=== PATIENT | male | born 1975 | race Two or more races ===

== ENCOUNTER 2019-10-12 09:40 | Outpatient (CLI) | payer OTHER ==
--- NOTE | 2019-10-12 10:18 | SLEEP CARE CONSULTATION ---
Information from patient questionnaire entered by Jeaneth Alves. I have reviewed and concur with the information entered by Jeaneth Alves. This document represents the service I personally performed and the decisions made by me, David Linda MD, [facility]. History of Present Illness Service Date and Time: 10/12/2019 0940 Reason for Visit: New patient Chief Complaint: reports: Unrefreshed sleep, Excessive daytime sleepiness, Fatigue Duration of Symptoms: 10 YEARS Usual bedtime: 2200 Time it takes to fall asleep: 5 minutes Snores at night: Yes Observed to quit breathing while asleep: Yes Sleeps alone due to snoring: Yes Number of times waking at night: 2 Reasons for waking at night: reports: Snoring, Gasping for air, Pain Toss, Turn, or Twitch while sleeping: Yes Recalls having dreams: No Usually gets out of bed at: 0530 Feels refreshed in the morning: No Morning headache: No Sleepy or fatigued during the day: Yes Ever fallen asleep while driving: Yes Takes day naps: No Dreams during day naps: Yes Prior sleep studies: No Additional HPI information: The patient is here because his snore has gotten too loud for his . She also has seen him quit breathing. He recalls waking up choking. He feels tired and sleepy during the day. His [place] Sleepiness Scale score is 14. Subjective Initial [place] Sleepiness Scale score: 14 Past Medical History Past Medical History: reports: Other (blood pressure) Social History The patient's occupation is an [employer]. Patient is and lives in [place]. Have you smoked in the past 12 months: Yes Cigarettes per day (20/pack): 10 Years of smokin Quit date: 05/2019 Smoking Pack Years: 5.0 Alcohol use: Yes Alcohol amount and frequency: 3-4 every other weekend Caffeine use: Yes Caffeine amount and frequency: 2 cups Allergies and Home Medications Drug allergies reviewed: Yes (NKDA) Home medication list reviewed: Yes (lisinopril and Claritin) Review of Systems Weight gain over past 5 years: 10 Weight loss over past 5 years: 10 Cardiovascular: reports: high blood pressure Respiratory: reports: shortness of breath Gastrointestinal: denies: heartburn, difficulty swallowing, nausea, vomitting, diarrhea, abdominal pain, other Urinary: denies: incontinence, frequency, urgency, impotence, other Neurological: denies: headaches, seizure, head trauma, disorientation, speech dysfunction, gait or balance problems, fainting or unconsciousness, other Psychiatric: denies: Attention Deficit Hyperactivity, anxiety, depression, mood disorder, claustrophobia, other Ear/Nose/Throat: reports: nasal congestion, sinus problems, wisdom teeth removed Musculoskeletal: reports: joint pain, back pain Immunologic: reports: sneezing, itching Physical Exam Vital signs obtained and entered by: Exam is deferred to comply with the COVID- 19 precautions. Height: 6 ft Weight: 207 lb Body Mass Index: 28.0 BMI Classification: Overweight Impression and Plan Visit Type: In Office Provider Statement: I spent 100% of the Face to Face Visit with the patient with greater than 50% spent counseling the patient and coordination of care.
== END 2019-10-12 09:41 | disposition home or self-care (01) ==
LOC: SC 09:40
PROVIDERS: ATTEND Internal Medicine Pulmonary Disease
DX: R06.83 Snoring (principal); R06.81 Apnea, not elsewhere classified; G47.10 Hypersomnia, unspecified; G47.8 Other sleep disorders; R53.83 Other fatigue; I10 Essential (primary) hypertension; E66.3 Overweight; Z68.28 Body mass index [BMI] 28.0-28.9, adult
CPT/HCPCS: 99203; 99212

== ENCOUNTER 2019-12-27 19:30 | Outpatient (CLI) | payer OTHER | END 2019-12-27 23:59 | disposition home or self-care (01) | LOC: SC 19:30 | PROVIDERS: ATTEND Nurse Practitioner Family | DX: G47.33 Obstructive sleep apnea (adult) (pediatric) (principal) | CPT/HCPCS: 95806 ==

== ENCOUNTER 2020-01-12 15:37 | Outpatient (CLI) | payer OTHER ==
--- NOTE | 2020-01-12 16:03 | SLEEP CARE CONSULTATION ---
Information from patient questionnaire entered by Suraj Rojas. I have reviewed and concur with the information entered by Suraj Rojas. This document represents the service I personally performed and the decisions made by me, Licha Calles ARNP. History of Present Illness Service Date and Time: 01/12/20201536 Initial [place] Sleepiness Scale score: 14 (in 2020) Current [place] Sleepiness Scale score: 10 Additional HPI information: MARIA ELENA AVILA returns for follow up and results of the recently performed home sleep study. I explained the pathophysiology behind obstructive sleep apnea. We then spent quite a bit of time discussing different treatment options. For mild obstructive sleep apnea, surgery and oral appliance are alternatives to nasal CPAP therapy but in moderate or severe cases, nasal CPAP is the most effective and reliable treatment. Because apnea is primarily in supine position, then positional management therapy could be effective. Methods discussed such as positioning with pillows, using a T-shirt with tennis balls in the back, and shown commercial products that have a pillow format on back to prevent supine sleep. I reviewed the impact of weight changes on sleep apnea and strongly recommended losing weight. After some discussion, the patient opted to go with the nasal CPAP therapy. Nasal autoCPAP set at 4-15 cmH20 will be ordered with rationale explained. A manual titration study will be ordered if unable to find optimal pressure with office adjustments. I explained how CPAP machine works with sample devices Respironics Dreamstation and ResVoddler [id number] and what to expect when using the machine. Using CPAP every night in order to get used to it was emphasized. Patient advised to put CPAP mask on before getting into bed so as not to fall asleep without CPAP. To assist acclimation to CPAP use, it could also be used for a short time during day while reading or watching TV. The patient was instructed to call the CPAP supplier to discuss any mechanical problem that may occur. If the mask given is uncomfortable or is difficult to keep on through the night even with adjustment, contact the CPAP supplier as many will replace with another mask style if notified before 30 days. If snoring or perceives is not getting enough air or too much air from the machine, notify this office. [facility] patient education PAP tips reviewed and given to patient. Patient counseled not drink alcohol less than 4 hours before bedtime as it can increase snoring and apnea. Patient was cautioned about risks of drowsy driving until sleepiness symptoms resolve. Sleep Study - Results Type of Sleep Study: Home sleep study Prior sleep studies: No Polysomnography/Home Sleep Study results: Based on 4% Calculation: The AHI4% calculation of 5.0 per hour of recording time was based on a total of 3 scored apneas and 14 scored hypopneas with 4% desaturations. Supine AHI4%: 14.2 per hour. Non-supine AHI4%: 1.6 per hour. Oxygen Summary: Patient's baseline O2 saturation was 92.0 %. The patient spent 2.9 minutes at an oxygen saturation less than 90%, and 0.3 minutes less than 85%. The desaturation index was 5.9 events per hour sleep time. The lowest saturation was 71.0 %. SNORING: The percent of the study time spent snoring was 0.0 %. The Snoring Co unt was 0 . The Snoring Index was 0.0 . PULSE RATE REVIEW: The mean heart rate was 62 beats per minute. The rate ranged from a low of 41 to a high of 76 beats per minute. DIAGNOSIS CODE: Obstructive Sleep Apnea G47.33 This patient has mild obstructive sleep apnea, occurring almost exclusively during supine sleep. Allergies and Home Medications Drug allergies reviewed: Yes (NKDA) Home medication list reviewed: Yes (no changes) Review of Systems Review of systems same as previous: Yes (no changes) Physical Exam Heart Rate: 78 O2 Saturation: 98 Height: 6 ft Weight: 198 lb Body Mass Index: 26.8 BMI Classification: Overweight Impression and Plan 1. Obstructive Sleep Apnea-Hypopnea Syndrome, mild, with lowest oxygen saturation of 71.0%. Obviously this is the cause of the patients symptoms of unrefreshed sleep, and excessive daytime sleepiness. Positive pressure therapy could benefit his high blood pressure. As mentioned above, the patient will be started on nasal autoCPAP therapy with pressure set at 4-15 cmH2O. Compliance guidelines also reviewed. A copy of compliance guidelines will be given for reference at check out. Because the apnea is more severe supine, I instructed to avoid sleeping supine using pillow positioning or Tshirt with sewn-in tennis balls until able to start CPAP use. * Nasal auto CPAP therapy, pressure at 4-15 cm H2O. * Attempt to lose weight. * Avoid alcohol consumption near bedtime. * Avoid supine sleep until using CPAP. * The patient is again cautioned about driving until sleepiness completely resolves. * Return one month after CPAP obtained. I will assess response to therapy and compliance at that time. Counseling Topics: Weight loss health impact Visit Type: In Office Time Spent with Patient (minutes): 18 Provider Statement: I spent 100% of the Face to Face Visit with the patient with greater than 50% spent counseling the patient and coordination of care.
== END 2020-01-12 15:38 | disposition home or self-care (01) ==
LOC: SC 15:37
PROVIDERS: ATTEND Nurse Practitioner Family
DX: G47.33 Obstructive sleep apnea (adult) (pediatric) (principal); E66.3 Overweight; Z68.26 Body mass index [BMI] 26.0-26.9, adult
CPT/HCPCS: 99212; 99213

== ENCOUNTER 2020-09-26 09:45 | Outpatient (CLI) | payer OTHER ==
--- NOTE | 2020-09-26 10:22 | SLEEP CARE CONSULTATION ---
Information from patient questionnaire entered by Kristine Rashid. I have reviewed and concur with the information entered by Kristine Rashid. This document represents the service I personally performed and the decisions made by , Licha Calles ARNP. History of Present Illness Service Date and Time: 09/26/2020 0945 Previous diagnosis: Mild, Obstructive Sleep Apnea-Hypopnea Syndrome AHI: 5.0 (in 2019) Reason for follow up: other (9 month; compliance) Equipment type: CPAP Equipment obtained from: Other ([facility]; getting supplies as needed) Mask style: Full face (AirFit F20) Mask brand: Resmed Backup mask available: Yes Last cushion change: 1 month Prior sleep studies: Yes Year and Where: 2019 - [facility] Type of Sleep Study: Home sleep study HPI additional information: MARIA ELENA AVILA was diagnosed to have mild, AHI 5.0, obstructive sleep apnea- hypopnea syndrome and returned today for CPAP therapy 9 month compliance follow- up. CPAP Compliance Data - Data Reviewed with Patient Average duration of nightly device use: 6 hr 47 min Compliance rate %: 87 (180 days)(97 initial 30 days) Current pressure setting (cmH2O): 4-15 (median 7.2, avg 10.2, max 11.8) Humidity settin Average residual AHI: 2.4 Central apnea: 0.2 Obstructive apnea: 1.3 Subjective Patient concerns: reports: air blowing in eyes, condensation in mask/hose (occasional), dry mouth, nose, throat. denies: aerophagia, mask discomfort, mask leak noise, nasal congestion, epistaxis Observed to snore while using device: No (doesn't know) Current pressure setting perceived as: comfortable On therapy, patient: reports: sleeping better, awakening more refreshed, being more awake and alert during the day, more rested overall. denies: drowsiness while driving Initial [place] Sleepiness Scale score: 14 (in 2019) Current [place] Sleepiness Scale score: 11 Allergies and Home Medications Home medication list reviewed: Yes (no new meds) Review of Systems Review of systems same as previous: Yes (no changes) Physical Exam Heart Rate: 81 O2 Saturation: 98 Height: 6 ft Weight: 203 lb Body Mass Index: 27.5 BMI Classification: Overweight Impression and Plan 1. Obstructive Sleep Apnea-Hypopnea Syndrome, mild, with good treatment compliance and good apnea control. On CPAP therapy, the patient has better sleep quality and is more rested overall. Patient is using a full face mask and occasionally when laying on his side get some air leaking into his eyes. Mask leaks can be reduced by washing mask daily and changing mask cushions more frequently to improve mask seal and comfort. Additionally, mask leaks predominately from when patient sleeps on their side can be reduced by using a CPAP pillow. We discussed other styles of fullface masks and he was encouraged to talk to his DME when he is eligible for a another mask to try a different style. He voiced understanding and agreement with this plan of care. 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 He was supplied a portable device by the [employer] to a different [employer] and will also need to have the pressure changed on this device to current change of 10 to 12 cmH2O which reflects current pressure use. Patient's apnea severity and rationale for treatment to reduce apnea, improve sleep quality and reduce cardiovascular and cerebrovascular events was reviewed. I also reviewed the benefit of consistent device use of CPAP for hypertension. * Change auto CPAP pressure to 10-12 cmH2O * Notify me if snoring with mask or feeling that the pressure is too much or too little * Attempt to lose weight * Call this office if any problems using CPAP * Return for follow up in 6 months, or sooner if concerns arise Counseling Topics: Spare mask, Weight loss health impact Visit Type: In Office Time Spent with Patient (minutes): 20 Provider Statement: I spent 100% of the Face to Face Visit with the patient with greater than 50% spent counseling the patient and coordination of care.
== END 2020-09-26 09:46 | disposition home or self-care (01) ==
LOC: SC 09:45
PROVIDERS: ATTEND Nurse Practitioner Family
DX: G47.33 Obstructive sleep apnea (adult) (pediatric) (principal); E66.3 Overweight; Z68.27 Body mass index [BMI] 27.0-27.9, adult
CPT/HCPCS: 99212; 99213